=== PATIENT | female | born 1995 | race Caucasian/White ===

== ENCOUNTER 2018-04-21 14:46 | Emergency (ER) | payer BC ==
[2018-04-21 14:57] VITALS: BP 129/80
--- NOTE | 2018-04-21 15:08 | EDPHY ---
H & P Time Seen by Provider: 04/21/18 14:59 HPI/ROS: CHIEF COMPLAINT: Left knee pain post skiing HISTORY OF PRESENT ILLNESS: 22-year-old female via private vehicle complaining of acute left knee pain which occurred yesterday when she was skiing, fell, her bindings did not release as expected and she sustained a torquing motion to her left knee. She is able to bear weight. No swelling and pain to the inferolateral aspect. No gross instability. She presents with her own pre- hospital crutches. No direct trauma or fall. PHYSICAL EXAM (Prior to examination, patient consented to physical exam, hands were washed and my usual and customary physical exam procedures followed) 1) GENERAL: Well-developed, well-nourished, alert and oriented. Appears to be in no acute distress. 2) HEAD: Normocephalic 3) HEENT: Pupils equal, round, reactive to light bilaterally. 4) LUNGS: Breathing comfortably. 5) MUSCULOSKELETAL: Exam of the left knee shows fusion. Prefer position is extension to approximately 170 degrees. Flexion extension beyond this elicits significant pain to the anterolateral aspect. No gross instability however the exam is limited secondary range of motion pain. Proximally distally nontender. . Compartments are soft. 6) SKIN: intact 7) VASCULAR: DP,PT pulses and cap refill present and brisk distally DIFFERENTIAL DIAGNOSIS: in no particular order including but not limited to fracture, sprain, compartment syndrome, septic arthritis, DVT Procedure: Crutches Patient's her own pre-hospital crutches, these were adjusted for the patient by ER staff. Observed ambulating with crutches. I think the patient has the capacity to safely use crutches. Usual and customary crutch walking precautions provided Procedure: Splint A knee immobilizer splint was applied by ER broadcast technician. After application of the splint I returned and re-examined the patient. The splint was adequately immobilizing the joint and distal to the splint the patient's circulation and sensation were intact. Patient shows no signs of compartment syndrome. Was given orthopedic precautions. MEDICAL DECISION MAKING Serial evaluations performed on patient. I discussed the limitations of x-ray in diagnosis of knee pain and injury. At this time I do not think that emergent MRI is currently indicated. However, I have recommended follow-up with Orthopedic surgery and provided this referral information. Informed the patient that outpatient MRI may be indicated. Doubt septic arthritis. Doubt compartment syndrome. Doubt DVT. Care of patient under supervision of secondary supervising physician Dr Megha Enciso. Smoking Status: Never smoked Constitutional: Initial Vital Signs Temperature (C) 36.8 C 04/21/18 14:54 Heart Rate 82 04/21/18 14:54 Respiratory Rate 16 04/21/18 14:54 Blood Pressure 129/80 H 04/21/18 14:54 O2 Sat (%) 97 04/21/18 14:54 O2 Delivery Mode Room Air Allergies/Adverse Reactions: No Known Allergies Allergy (Unverified 04/21/18 14:52) Home Medications: Medication Instructions Recorded Balsalazide Disodium 04/21/18 Canasa 04/21/18 Celexa 04/21/18 Nexplanon 04/21/18 MDM/Departure - MDM Imaging Results: Imaging Impressions Knee X-Ray 04/21/18 14:58 Impression: Moderate suprapatellar joint effusion. No evidence for acute osseous abnormality left knee. Images reviewed myself - Depart Disposition: Home, Routine, Self-Care Clinical Impression: Left knee sprain Qualifiers: Encounter type: initial encounter Involved ligament of knee: unspecified ligament Qualified Code(s): S83.92XA - Sprain of unspecified site of left knee, initial encounter Skiing accident Qualifiers: Encounter type: initial encounter Qualified Code(s): V00.328A - Other snow-ski accident, initial encounter Condition: Good Instructions: Knee Sprain (ED) Additional Instructions: Return to the ER immediately if you experience discoloration, have worsening pain, numbness, tingling, or any other symptoms that concern you. If you received x-rays in the emergency department today, be advised, that ligamentous , tendon, muscular, and other non-bony injury cannot be fully ruled out. Try to keep your affected extremity elevated above the level of your chest, and keep cold packs on the affected area, for the next 48 hours. Adult Pain & Fever Control: We recommend Acetaminophen (Tylenol) and Ibuprofen (Motrin,Advil) for pain and fever control. When fever is high or pain severe, both drugs can be used at the same time, but at different intervals. Please note the time differences. Your dose is: Acetaminophen 650mg every 4 to 6 hours Ibuprofen 600mg every 6 hours with food OR Note: do not take Acetaminophen with Hydrocodone (Vicodin, Lortab) or Oycodone (Percocet). These medications also contain Acetaminophen. No more than 3000mg of Acetaminophen should be taken in 24 hours (for an adult). Referrals: Sridhar Anderson MD [Medical Doctor] - As per Instructions
== END 2018-04-21 15:30 | disposition home or self-care (01) ==
DX: S83.92XA Sprain of unspecified site of left knee, initial encounter (principal); M25.462 Effusion, left knee; V00.321A Fall from snow-skis, initial encounter; Y92.89 Other specified places as the place of occurrence of the external cause; Y93.23 Activity, snow (alpine) (downhill) skiing, snowboarding, sledding, tobogganing and snow tubing; Y99.9 Unspecified external cause status